=== PATIENT | female | born 2000 | race Two or more races ===

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

== ENCOUNTER 2020-04-18 08:25 | Emergency (ER) | payer BC ==
[~2020-04-18] VITALS: Ht 157.5 cm; Wt 56.7 kg
[2020-04-18 08:55] VITALS: BP 88/59
[2020-04-18] MEDS ORDERED: KETOROLAC TROMETH 30 MG/ML 1ML VIAL IV ONE (10:00)
[2020-04-18] MEDS ORDERED: PROMETHAZINE HCL 25 MG/ML 1ML IV ONE (10:00)
== END 2020-04-18 11:30 | disposition home or self-care (01) ==
LOC: EDBD 08:25 → ER 08:25
DX: H81.13 Benign paroxysmal vertigo, bilateral (principal); H61.23 Impacted cerumen, bilateral
CPT/HCPCS: 70450; 96374; 96375; 99284; J1885; J2550